=== PATIENT | male | born 1990 | race African-American/Black ===

== ENCOUNTER 2016-07-05 16:53 | Emergency (ER) | payer SELFPAY ==
[~2016-07-05] VITALS: Ht 182.9 cm; Wt 72.6 kg
[2016-07-05 17:08] VITALS: BP 115/60
[2016-07-05 17:37] LABS: Basophils # (auto) 0 uL; Basophils % (auto) 0.2 % (0.0-2.0); Eosinophils # (auto) 0 uL; Hematocrit 46.2 % (41.0-53.0); Hemoglobin 15.2 g/dL (13.5-17.5); Lymphocytes # (auto) 1.3 uL; Lymphocytes % (auto) 9.2 % (10.0-50.0); Mean Corpuscular Hemoglobin 28.6 pg (28.0-32.0); Mean Corpuscular Hgb Conc. 32.9 g/dL (32.0-36.0); Mean Corpuscular Volume 86.7 fL (80.0-100.0); Mean Platelet Volume 8.3 fL (7.4-10.4); Monocytes # (auto) 0.6 uL; Monocytes % (auto) 4.1 % (0.0-12.0); Neutrophils # (auto) 12.2 uL; Neutrophils % (auto) 86.5 % (37.0-80.0); Platelet Count (auto) 344 10^3/uL (140-450); Red Cell Distribution Width 13.9 % (11.6-16.0); SUSPECT VIEW TRANSMISSION; White Blood Cell 14.1 10^3/uL (4.4-10.8)
[2016-07-05 18:00] LABS: Albumin 4.9 g/dL (3.4-5.0); Anion Gap 13 (5-15); Aspartate Aminotransferase 21 U/L (15-37); BUN/Creatinine Ratio 9.4; Blood Urea Nitrogen 12 mg/dL (7-18); Calcium 9.3 mg/dL (8.5-10.1); Carbon Dioxide 24 mmol/L (21-32); Chloride 104 mmol/L (98-107); GFR African American 90 mL/min; GFR Non-African American 74 mL/min; Glucose 110 mg/dL (74-106); Potassium 3.9 mmol/L (3.5-5.1); Sodium 141 mmol/L (136-145)
[2016-07-05 18:03] LABS: Alkaline Phosphatase 111 U/L (45-117); Bilirubin, Total 0.6 mg/dL (0.2-1.0); Total Protein 8.9 g/dL (6.4-8.2)
== END 2016-07-05 20:00 | disposition left against medical advice (07) ==
LOC: ER 16:54
DX: F10.129 Alcohol abuse with intoxication, unspecified (principal); Z53.21 Procedure and treatment not carried out due to patient leaving prior to being seen by health care provider
CPT/HCPCS: 36415; 80053; 80320; 85025